=== PATIENT | male | born 1985 | race African-American/Black ===

== ENCOUNTER 2019-06-27 09:43 | Emergency (ER) | payer MEDICAID ==
[~2019-06-27] VITALS: Ht 177.8 cm; Wt 77.0 kg
[2019-06-27 10:28] VITALS: BP 111/50
== END 2019-06-27 10:57 | disposition home or self-care (01) ==
LOC: ER 09:43
DX: T23.001D Burn of unspecified degree of right hand, unspecified site, subsequent encounter (principal); S61.411D Laceration without foreign body of right hand, subsequent encounter; Z48.00 Encounter for change or removal of nonsurgical wound dressing; Z87.891 Personal history of nicotine dependence; X08.8XXD Exposure to other specified smoke, fire and flames, subsequent encounter
CPT/HCPCS: 99281